=== PATIENT | male | born 1955 | race Caucasian/White ===

== ENCOUNTER 2016-08-23 09:20 | Outpatient (CLI) | payer OTHER | END 2016-08-23 09:21 | disposition home or self-care (01) | DX: R53.83 Other fatigue (principal); J45.909 Unspecified asthma, uncomplicated; I07.1 Rheumatic tricuspid insufficiency ==

== ENCOUNTER 2016-08-26 | Outpatient (CLI) | payer OTHER | END 2016-08-26 13:37 | disposition home or self-care (01) | DX: J45.909 Unspecified asthma, uncomplicated (principal) ==

== ENCOUNTER 2017-01-19 15:30 | Outpatient (CLI) | payer OTHER | END 2017-01-19 15:31 | disposition home or self-care (01) | LOC: SC 15:30 | PROVIDERS: ATTEND Nurse Practitioner Family | DX: G47.33 Obstructive sleep apnea (adult) (pediatric) (principal) | CPT/HCPCS: 99212; 99215 ==

== ENCOUNTER 2017-02-17 18:03 | Emergency (ER) | payer OTHER ==
--- NOTE | 2017-02-17 19:15 | ED Physician Documentation ---
PD HPI HEADACHE - Stated complaint Stated Complaint: HEADACHE - Chief complaint Chief Complaint: Neuro - History obtained from History obtained from: Patient - History of Present Illness Timing - onset: Other (For the last 3-4 days this gentleman who really has not had much in the way of headaches in the past has had thunderclap left retro- orbital headaches that start usually when he is on the toilet to have a bowel movement. The last 45 minutes to an hour at a time and then resolve with head pressure. While he has them he is very slightly nauseous but not light sensitive.) Review of Systems Ten Systems: 10 systems reviewed and negative Constitutional: denies: Fever, Chills Eyes: denies: Loss of vision, Decreased vision, Photophobia Cardiac: denies: Chest pain / pressure, Palpitations Respiratory: denies: Dyspnea, Cough PD PAST MEDICAL HISTORY - Past Medical History Past Medical History: Yes Respiratory: Asthma GI: GERD Other Past Medical History: sinus problems, melanoma - Past Surgical History Past Surgical History: Yes - Present Medications Home Medications: Ambulatory Orders Medication Instructions Recorded Confirmed Amox/Clav 875/125 [Augmentin] 1 each PO Q12H #28 tablet 02/17/17 Indomethacin [Indocin] 25 mg PO BID PRN #15 capsule 02/17/17 Sumatriptan 1 spray NS BID PRN #1 spray 02/17/17 - Allergies Allergies/Adverse Reactions: Allergies Allergy/AdvReac Type Severity Reaction Status Date / Time triamcinolone acetonide * Allergy Unknown Verified 02/17/17 19:43 [From [facility]] - Social History Does the pt smoke?: No Smoking Status: Never smoker Does the pt drink ETOH?: Yes Does the pt have substance abuse?: No - Immunizations Immunizations are current?: Yes - POLST Patient has POLST: No PD ED PE NORMAL - Vitals Vital signs reviewed: Yes - General General: Alert and oriented X 3, No acute distress - HEENT HEENT: PERRL, EOMI - Neck Neck: Supple, no meningeal sign, No bony TTP - Cardiac Cardiac: RRR, No murmur - Respiratory Respiratory: No respiratory distress, Clear bilaterally - Abdomen Abdomen: Normal bowel sounds, Soft, Non tender - Derm Derm: Normal color, Warm and dry - Extremities Extremities: No edema, No calf tenderness / cord - Neuro Neuro: Alert and oriented X 3, foot piece assembler 2-12 intact, No motor deficit, No sensory deficit, Normal speech - Psych Psych: Normal mood, Normal affect Results - Vitals Vitals: Vital Signs - 24 hr 02/17/17 02/17/17 02/17/17 18:20 20:40 22:02 Temperature 36.0 C L Heart Rate 67 61 56 L Respiratory 18 18 18 Rate Blood Pressure 155/92 H 147/83 H 138/89 H O2 Saturation 99 96 95 Oxygen O2 Source Room air - Labs Labs: Laboratory Tests 02/17/17 02/17/17 19:35 19:35 WBC 6.4 RBC 4.76 Hgb 14.8 Hct 43.4 MCV 91.1 MCH 31.0 MCHC 34.1 RDW 12.7 Plt Count 242 MPV 7.6 Neut # 3.1 Lymph # 2.7 [place] # 0.4 Eos # 0.2 Baso # 0.0 Absolute Nucleated RBC 0.00 Nucleated RBCs 0.0 Sodium 139 Potassium 3.9 Chloride 104 Carbon Dioxide 28 Anion Gap 7.0 BUN 12 Creatinine 1.0 Estimated GFR (MDRD) 76 L Glucose 127 H Calcium 9.6 - Rads (name of study) CT Angio Head Radiology: EMP read contemporaneously PD MEDICAL DECISION MAKING - ED course ED course: 61-year-old gentleman with episodic thunderclap headaches, CT angiography was performed, I discussed it with the radiologist, bolus timing was not perfect, but he felt there was probably no obvious aneurysm, there was left ethmoid sinusitis which may be causative. Follow-up for MRI and MRA encouraged. Departure - Departure Disposition: 01 Home, Self Care Clinical Impression: Sinusitis, acute Qualifiers: Sinusitis location: ethmoidal Recurrence: non-recurrent Qualified Code(s): J01.20 - Acute ethmoidal sinusitis, unspecified Headache Qualifiers: Headache type: unspecified Headache chronicity pattern: acute headache Intractability: not intractable Qualified Code(s): R51 - Headache Condition: Good Record reviewed to determine appropriate education?: Yes Instructions: ED Cephalgia Unspecified, ED Sinusitis Abx Tx Prescriptions: Amox/Clav 875/125 [Augmentin] 1 each PO Q12H #28 tablet Indomethacin [Indocin] 25 mg PO BID PRN #15 capsule PRN Reason: Headache Sumatriptan 1 spray NS BID PRN #1 spray PRN Reason: Headache Comments: Follow-up with Dr. Dan, next available appointment. Discuss MRI/MRA of your brain and the efficacy of the medications I am giving you. Return immediately if worse, fevers, or new symptoms. Your blood pressure was elevated today on check into the emergency department. This does not mean that you have hypertension, it is a common phenomenon to come to the emergency department and have elevated blood pressure. I recommend that she see her primary care physician within the week to have it rechecked when you are feeling better.
[2017-02-17 20:04] LABS: BASOPHILS % (AUTO) 0.7 %; EOSINOPHILS # (AUTO) 0.2 10^3/uL (0.0-0.7); EOSINOPHILS % (AUTO) 2.6 %; HCT - HEMATOCRIT 43.4 % (42.0-52.0); HGB - HEMOGLOBIN 14.8 g/dL (14.0-18.0); LYMPHOCYTES # (AUTO) 2.7 10^3/uL (1.5-3.5); LYMPHOCYTES % (AUTO) 42.2 %; MEAN CORPUSCULAR HGB CONC 34.1 g/dL (32.0-36.0); MEAN CORPUSCULAR VOLUME 91.1 fL (80.0-94.0); MEAN PLATELET VOLUME 7.6 fL (7.4-11.4); MONOCYTES # (AUTO) 0.4 10^3/uL (0.0-1.0); MONOCYTES % (AUTO) 6.3 %; NEUTROPHILS # (AUTO) 3.1 10^3/uL (1.5-6.6); NEUTROPHILS % (AUTO) 48.2 %; RED BLOOD COUNT 4.76 10^6/uL (4.70-6.10); RED CELL DISTRIBUTION WIDTH 12.7 % (12.0-15.0); UNCORRECTED WHITE BLOOD COUNT 6.4 x10^3/uL; WHITE BLOOD COUNT 6.4 x10^3/uL (4.8-10.8)
[2017-02-17 20:14] LABS: CALCIUM 9.6 mg/dL (8.5-10.3); POTASSIUM 3.9 mmol/L (3.5-5.0)
[2017-02-17] MEDS ORDERED: IOPAMIDOL-300 100 ML VIAL IVP ONE (21:17)
[2017-02-17 22:03] VITALS: BP 138/89
--- NOTE | 2017-02-17 22:05 | CT Report ---
EXAM: CT ANGIOGRAM HEAD EXAM DATE: 02/17/2017 09:04 PM. CLINICAL HISTORY: Intermittent Left thunderclap headaches. COMPARISON: None. TECHNIQUE: Routine helical CTA imaging was performed through the head. IV Contrast: 100 cc [id number] . Reconstructions: Routine multiplanar 3D MIP reconstructions. NASCET Criteria are used for stenosis measurements. In accordance with CT protocol optimization, one or more of the following dose reduction techniques w ere utilized for this exam: automated exposure control, adjustment of mA and/or KV based on patient s ize, or use of iterative reconstructive technique. FINDINGS: NON-CONTRAST HEAD: Parenchyma: No evidence of acute infarct, hemorrhage, or mass lesion. Brain parenchyma demonstrates n ormal appearance. Ventricles and Extra-axial Spaces: Normal. No extra-axial fluid collections or hemorrhage. Orbits and Sinuses: Orbits are normal. There is total opacification of the frontal sinus and nellie re mucosal thickening of the anterior left ethmoid air cells. Mastoid air cells and middle ear caviti es appear clear. Extracranial Soft Tissues and Bones: Extracranial soft tissues are unremarkable. No fractures. CT ANGIOGRAM HEAD: There appears to be poor contrast bolus timing with poor contrast opacification of the intracranial v asculature that technically limits evaluation. RIGHT: Intracranial ICA: The visualized intracranial ICA demonstrates no definitive aneurysm or stenosis Vertebral Artery: The visualized artery demonstrates no definitive aneurysm or stenosis. Anterior Cerebral Artery: The visualized artery demonstrates no definitive aneurysm or stenosis. Middle Cerebral Artery: The visualized artery demonstrates no definitive aneurysm or stenosis. Posterior Cerebral Artery: The visualized artery demonstrates no definitive aneurysm or stenosis. Posterior Communicating Artery: Not definitively seen. LEFT: Intracranial ICA: The visualized intracranial ICA demonstrates no definitive aneurysm or stenosis Vertebral Artery: The visualized artery demonstrates no definitive aneurysm or stenosis. Anterior Cerebral Artery: The visualized artery demonstrates no definitive aneurysm or stenosis. Middle Cerebral Artery: The visualized artery demonstrates no definitive aneurysm or stenosis. Posterior Cerebral Artery: The visualized artery demonstrates no definitive aneurysm or stenosis. Posterior Communicating Artery: Not definitively seen. CENTRAL: Anterior Communicating Artery: Patent. No aneurysm. Basilar Artery: The visualized artery demonstrates no definitive aneurysm or stenosis. DURAL VENOUS SINUSES AND MAJOR CENTRAL VEINS: Patent. POST-CONTRAST HEAD: No abnormal enhancement. IMPRESSION: CT HEAD 1. No definitive acute infarct, hemorrhage, mass, hydrocephalus, or abnormal postcontrast enhancement . 2. There is total opacification of the frontal sinus with severe mucosal thickening of the anterior l eft ethmoid air cells. Finding may represent acute sinusitis in the appropriate clinical setting. CTA HEAD 1. On angiographic imaging there is poor contrast opacification of the intracranial arterial vessels which may be due to poor contrast bolus timing. This technically limits evaluation of the intracrania l vasculature. 2. The visualized intracranial vasculature does not demonstrate definitive stenosis or aneurysm, thou gh these are not excluded on the current study. Consider repeat examination or MRA. CHA The above findings were discussed with Garry Claire by Dr. Vikram Curtis at 22:01 hrs on 02/17/17. Referring Provider Line: [phone] SITE ID: [id number]
[2017-02-17] MEDS ORDERED: AMOX/CLAV 875 MG/125 MG TABLET PO STA (22:08)
[2017-02-17] MEDS ORDERED: KETOROLAC 30 MG/ML VIAL IVP STA (22:08)
[2017-02-17] MEDS ORDERED: KETOROLAC 30 MG/ML VIAL ONE (22:11)
[2017-02-17] MEDS ORDERED: AMOX/CLAV 875 MG/125 MG TABLET PO ONE (22:11)
== END 2017-02-17 22:30 | disposition home or self-care (01) ==
LOC: ED 18:03
DX: J01.20 Acute ethmoidal sinusitis, unspecified (principal); R51 Headache; R03.0 Elevated blood-pressure reading, without diagnosis of hypertension; R11.0 Nausea
CPT/HCPCS: 36415; 70496; 80048; 85025; 96374; 99283; 99284; A9270; Q9967

== ENCOUNTER 2018-02-16 14:54 | Outpatient (CLI) | payer OTHER | END 2018-02-16 14:55 | disposition home or self-care (01) | LOC: SC 14:54 | PROVIDERS: ATTEND Nurse Practitioner Family | DX: G47.33 Obstructive sleep apnea (adult) (pediatric) (principal) | CPT/HCPCS: 99212; 99213 ==

== ENCOUNTER 2019-04-10 15:42 | Outpatient (CLI) | payer OTHER ==
--- NOTE | 2019-04-10 17:29 | SLEEP CARE CONSULTATION ---
Information from patient questionnaire entered by Maritza Tesfaye. I have reviewed and concur with the information entered by Maritza Tesfaye. This document represents the service I personally performed and the decisions made by me, Marilyn Ulloa, RN, MSN, PASTORAL WORKER. History of Present Illness Previous diagnosis: Moderate, Obstructive Sleep Apnea-Hypopnea Syndrome AHI: 21.7 Reason for CPAP/BiPAP follow up: annual Accompanied by: Spouse Equipment type: CPAP Equipment obtained from: [facility] Mask style: Nasal pillows (Mirza Fx nasal pillows) Mask brand: Resmed Backup mask available: Yes Last cushion change: today Prior sleep studies: Yes Year and Where: 2008 [facility] CPAP Compliance Data - Data Reviewed with Patient Average duration of nightly device use: 8H 29M Compliance rate %: 99.4 Current pressure setting (cmH2O): 12-20 Humidity settin Heated hose settin Subjective Patient concerns: reports: nasal congestion (morning cough for years that is resolved within 30 minutes or less. ), other (the cat turns on the CPAP intermittently as noted on compliance. ). denies: aerophagia, mask discomfort, air blowing in eyes, mask leak noise, condensation in mask/hose, dry mouth, nose, throat, epistaxis Observed to snore while using device: Yes (when supine) Current pressure setting perceived as: comfortable On therapy, patient: reports: sleeping better, more rested overall. denies: drowsiness while driving Initial [place] Sleepiness Scale score: 6 Current [place] Sleepiness Scale score: 5 Allergies and Home Medications Known drug allergies: No Allergy and home medication list: Medication Name (generic/name brand) Strength & Dosage Advair Diskus 2 puffs daily Protonix 20mg tab one daily celexa 20mg daily Review of Systems Review of systems same as previous: Yes Physical Exam Heart Rate: 56 O2 Saturation: 97 Height: 5 ft 10.6 in Weight (kg): 285 lb Weight change since last visit: 19 pounds weight gain Body Mass Index: 40.1 BMI Classification: Class 3 Impression and Plan 1. Obstructive Sleep Apnea-Hypopnea Syndrome, moderate, with good treatment compliance and good apnea control. On CPAP therapy, the patient has better sleep quality and is more rested overall. For morning cough and nasal congestion, he is advised to try using CPAP with humidity off but water in reservoir as a passover. This to see if humidity level is cause of cough. He is to adjust as needed for comfort. I showed him how to adjust setting on a sample CPAP. His increase in fatigue he feels is due to new antidepressant though likes benefit as he is less irritable. However, he has noted increased ability to doze when sedentary. Thus since he is snoring when supine, I will increase CPAP pressure range to [id number]. He is to contact me if pressure change is uncomfortable. His questions were answered about travel CPAP. Since his apnea is more severe supine as shown on his polysomnography, he is advised to avoid sleeping supine if unable to use CPAP. I also discussed effect of his recent weight gain to his apnea risk and pressure requirements. Thus he is advised to lose weight and agreed with plan. Patient's apnea severity and rationale for treatment to reduce apnea, improve sleep quality and reduce cardiovascular and cerebrovascular events was reviewed. I also reviewed the benefit of consistent device use of CPAP for depression( stress) . * Change CPAP pressure to 13-20 cmH2O * Adjust humidity * Avoid supine sleep if unable to use CPAP. * Notify me if snoring with mask or feeling that the pressure is too much or too little * Attempt to lose weight * Return for follow up in 1 year , or sooner if concerns arise I spent 100% of this 30 minute visit face to face with the patient with greater than 50% of this was spent time counseling the patient and coordination of care.
== END 2019-04-10 15:43 | disposition home or self-care (01) ==
LOC: SC 15:42
PROVIDERS: ATTEND Nurse Practitioner Family
DX: G47.33 Obstructive sleep apnea (adult) (pediatric) (principal)
CPT/HCPCS: 99212; 99214

== ENCOUNTER 2019-09-14 10:36 | Outpatient (CLI) | payer MEDICARE, OTHER ==
[2019-09-14 11:45] VITALS: BP 120/80
--- NOTE | 2019-09-14 11:45 | SLEEP CARE CONSULTATION ---
Information from patient questionnaire entered by Keila Chew. I have reviewed and concur with the information entered by Keila Chew. This document represents the service I personally performed and the decisions made by me, Marilyn Ulloa, RN, MSN, MANAGER [employer]ING. History of Present Illness Previous diagnosis: Moderate, Obstructive Sleep Apnea-Hypopnea Syndrome AHI: 21.7 Reason for follow up: other (Medicare compliance visit) Equipment type: CPAP Equipment obtained from: [facility] Mask style: Nasal pillows CPAP Compliance Data - Data Reviewed with Patient Average duration of nightly device use: 8.7 (8.75 last 30) Compliance rate %: 100 (06/02/19-07/01/19)(100 for last 30 days) Current pressure setting (cmH2O): 13-20 Humidity settin Heated hose settin Average residual AHI: 2.4 (2.3 last 30 days) Average large leak: 21 min 28 sec (1 min last 30 days) Subjective Missed days of use due to: reports: other (increased sleep after ER visit ) Patient concerns: denies: aerophagia, mask discomfort, air blowing in eyes, mask leak noise, condensation in mask/hose, nasal congestion, dry mouth, nose, thr oat, epistaxis Observed to snore while using device: No Current pressure setting perceived as: comfortable On therapy, patient: reports: sleeping better, awakening more refreshed, being more awake and alert during the day, more rested overall. denies: drowsiness while driving Initial [place] Sleepiness Scale score: 6 Current [place] Sleepiness Scale score: 2 Allergies and Home Medications Known drug allergies: Yes Home medication list reviewed: Yes (no changes except prednisone taper ) Review of Systems Review of systems same as previous: No (ER for left frontal/orbital severe headache / Sinus surgery planned) Physical Exam Blood Pressure: 120/80 Cuff size: long Heart Rate: 70 O2 Saturation: 98 Height: 5 ft 10.6 in Weight: 280 lb 9.6 oz Weight change since last visit: lost 4.4 pounds Body Mass Index: 39.5 BMI Classification: Obese Impression and Plan 1. Obstructive Sleep Apnea-Hypopnea Syndrome,moderate , with good treatment compliance and good apnea control. On CPAP therapy, the patient has better sleep quality and is more rested overall. His compliance showed good compliance after Medicare insurance first 30 days in June and since. For upcoming sinus surgery, he is to bring his CPAP. He is also to discuss if can use CPAP. If he does, perhaps a full face mask could be used until he heals. Thus I fitted him with an Dreamwear full face mask - medium. He is to use prior to surgery so used to it to assist transition post operatively. It was emphasized that his pain medication will increase apnea risk so needs to use CPAP with all sleep. His current autoCPAP range should accommodate for higher AHI. Currently on CPAP pressure of [id number] with 90% average pressure of 14.1cmH20.Patient has started to lose weight as advised at last visit. Currently patients BMI is 39.9 obesity class. Morbid obesity is BMI of 40. Obesity increases the risk of apnea, CPAP pressure requirements and overall health risks especially cardiovascular and diabetes. Thus patient is advised to continue to lose weight. Weight loss can be done with reducing portion size, reducing refined foods and balancing content with vegetables, fruit and protein. In addition tracking food intake will allow awareness of how to modify diet to achieve weight loss goals. Also eating more slowly will allow more awareness of food intake and enjoyment of food while assisting patient to modify intake at each meal. A diet consultation can be helpful in achieving optimal weight loss goals. The BMI chart was reviewed. The patient would like to reduce to 20 pounds bringing their BMI down to about 36. Patient encouraged to discuss their weight loss goals with their PCP and consider a referral to a knitter helper. He has tried in past and not successful. He is advised to track food for a week to figure where he needs to modify. In addition, eat slowly with rationale discussed. Then he is advised to strive for small weight loss goals suchs as 10 pounds to get to a more healthy weight. The ultimate goal for him where felt well was 180 weight and would bring his BMI down to 25 as shown on the BMI chart . He could also think of a program that he and spouse could do together such as weight watchers and discuss with PCP. The patient's CPAP pressure range should accommodate some weight loss. Symptoms to report for additional pressure adjustment discussed. Patient's apnea severity and rationale for treatment to reduce apnea, improve sleep quality and reduce cardiovascular and cerebrovascular events was reviewed. I also reviewed the benefit of consistent device use of CPAP for gerd. * Continue CPAP pressure at 13-20 cmH2O * Try Full Face mask in prep for post op use * Notify me if snoring with mask or feeling that the pressure is too much or too little * Continue to lose weight * Call this office if any problems using CPAP * Return for follow up in 1 year , or sooner if concerns arise Time Spent with Patient (minutes): 33 I spent 100% of this visit face to face with the patient with greater than 50% of this was spent time counseling the patient and coordination of care.
== END 2019-09-14 10:37 | disposition home or self-care (01) ==
LOC: SC 10:36
PROVIDERS: ATTEND Nurse Practitioner Family
DX: G47.33 Obstructive sleep apnea (adult) (pediatric) (principal); E66.9 Obesity, unspecified; Z68.39 Body mass index [BMI] 39.0-39.9, adult
CPT/HCPCS: 99214; G0463; 99212

== ENCOUNTER 2020-04-21 14:02 | Outpatient (CLI) | payer MEDICARE, OTHER | END 2020-04-21 14:03 | disposition critical access hospital (66) | LOC: EMS 14:02 | PROVIDERS: ATTEND Surgery | DX: S49.91XA Unspecified injury of right shoulder and upper arm, initial encounter (principal); W01.198A Fall on same level from slipping, tripping and stumbling with subsequent striking against other object, initial encounter; Y93.H9 Activity, other involving exterior property and land maintenance, building and construction; Y92.008 Other place in unspecified non-institutional (private) residence as the place of occurrence of the external cause | CPT/HCPCS: A0425; A0429 ==

== ENCOUNTER 2020-04-21 14:35 | Emergency (ER) | payer MEDICARE, OTHER ==
--- NOTE | 2020-04-21 14:41 | ED Physician Documentation ---
PD HPI UPPER EXT INJURY - Stated complaint Stated Complaint: FALL/SHOULDER PAIN - History obtained from History obtained from: Patient - History of Present Illness Location: Right, Shoulder Type of injury: Fall (he fell few feet and struck right shoulder on corner edging of deck. Pain at right shoulder and painful for movement. 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 No: Weakness, Numbness Similar symptoms before: Has not had sx before Review of Systems Constitutional: denies: Fever Nose: denies: Rhinorrhea / runny nose, Congestion Throat: denies: Sore throat Cardiac: denies: Chest pain / pressure Respiratory: denies: Cough GI: denies: Abdominal Pain Skin: denies: Abrasion (s), Laceration (s) Neurologic: denies: Headache, Head injury PD PAST MEDICAL HISTORY - Past Medical History Respiratory: Asthma GI: GERD - Past Surgical History Past Surgical History: Yes - Present Medications Home Medications: Ambulatory Orders Medication Instructions Recorded Confirmed Amox/Clav 875/125 [Augmentin] 1 each PO Q12H #28 tablet 02/17/17 Indomethacin [Indocin] 25 mg PO BID PRN #15 capsule 02/17/17 SUMAtriptan [Sumatriptan] 1 spray NS BID PRN #1 spray 02/17/17 Hydrocodone/Acetaminophen 1 each PO Q6H PRN #15 tablet 04/21/20 [Hydrocodone-Acetamin 5-325 mg] Naproxen 500 mg PO TID #20 tablet 04/21/20 methocarbamoL [Robaxin] 500 mg PO Q6H PRN #20 tablet 04/21/20 - Allergies Allergies/Adverse Reactions: Allergies Allergy/AdvReac Type Severity Reaction Status Date / Time triamcinolone acetonide * Allergy Unknown Verified 04/21/20 14:41 [From [facility]] - Social History Does the pt smoke?: No Smoking Status: Never smoker Does the pt drink ETOH?: Yes Does the pt have substance abuse?: No - Immunizations Immunizations are current?: Yes - POLST Patient has POLST: No PD ED PE NORMAL - Vitals Vital signs reviewed: Yes - General General: Alert and oriented X 3, No acute distress, Well developed/nourished - HEENT HEENT: Atraumatic - Neck Neck: Supple, no meningeal sign - Cardiac Cardiac: RRR, No murmur - Respiratory Respiratory: Clear bilaterally, Other (no chestwall tenderness) - Derm Derm: Normal color, Warm and dry - Extremities Extremities: Other (right shoulder with tenderness mostly proximal humeral area. Some tender posterior shoulder. Swelling/effusion of the shoulder. No gross deformity. Limited ROM due to the pain of it. ) - Neuro Neuro: No motor deficit, No sensory deficit, Other (no edema in forearm/hand.) Results - Vitals Vitals: Vital Signs - 24 hr 04/21/20 04/21/20 14:36 16:29 Temperature 37 C Heart Rate 62 65 Respiratory 16 16 Rate Blood Pressure 149/82 H 183/92 H O2 Saturation 98 95 Oxygen O2 Source Room air - Rads (name of study) right shoulder Radiology: Prelim report reviewed (no fractures nor dislocations. ), See rad report PD MEDICAL DECISION MAKING - ED course Complexity details: reviewed results, considered differential, d/w patient Departure - Departure Disposition: 01 Home, Self Care Clinical Impression: Accidental fall Qualifiers: Encounter type: initial encounter Qualified Code(s): W19.XXXA - Unspecified fall, initial encounter Shoulder injury Qualifiers: Encounter type: initial encounter Laterality: right Qualified Code(s): S49.91XA - Unspecified injury of right shoulder and upper arm, initial encounter Condition: Stable Record reviewed to determine appropriate education?: Yes Instructions: ED Sprain Shoulder Follow-Up: Delvis Cohen MD [Provider Admit Priv/Credential] - CLAUDIA SANDOVAL DO [Primary Care Provider] - Prescriptions: Hydrocodone/Acetaminophen [Hydrocodone-Acetamin 5-325 mg] 1 each PO Q6H PRN #15 tablet PRN Reason: Pain Naproxen 500 mg PO TID #20 tablet methocarbamoL [Robaxin] 500 mg PO Q6H PRN #20 tablet PRN Reason: Spasms Comments: X-rays are seen on your x-ray according to the radiology report. Presume there is soft tissue injury of injury of the ligaments or could even be the rotator cuff muscles given the amount of pain that you have and swelling in the area. Use the sling for decreased range of motion and comfort for the next 1 to 2 weeks. Follow-up with orthopedics or your primary care for evaluation of the shoulder later this week or early next week to better assess it once the swelling is down. Anti-inflammatories naproxen 2-3 times a day with food. To that add Tylenol or hydrocodone as needed for pain. Limited use of the right arm for the next couple of weeks likely. Forms: Activity restrictions Discharge Date/Time: 04/21/20 16:00
[2020-04-21] MEDS ORDERED: HYDROmorphone 2 MG/ML VIAL IM STA (14:42)
[2020-04-21] MEDS ORDERED: KETOROLAC 30 MG/ML VIAL IM STA (14:42)
--- NOTE | 2020-04-21 15:20 | XRAY Report ---
PROCEDURE: Shoulder 3 View RT INDICATIONS: fall to right shoulder TECHNIQUE: 3 views of the shoulder were acquired. COMPARISON: None. FINDINGS: Bones: No fractures or dislocations. No suspicious bony lesions. Visualized ribs appear intact. De generative changes are seen, including moderate subacromial spurring. Soft tissues: No suspicious soft tissue calcifications. The visualized lung demonstrates a normal a ppearance. IMPRESSION: No acute posttraumatic abnormality is seen. If there is focal tenderness (or other strong clinical concern for a fracture that is not seen on thi s plain film study) then please consider a dedicated CT for further evaluation. Reviewed by: Tyrone Love MD on 04/21/2020 2:19 PM [facility] Approved by: Tyrone Love MD on 04/21/2020 2:19 PM [facility] Station ID: [id number]
[2020-04-21] MEDS ORDERED: HYDROcod/ACETAM 5/325 MG TABLET PO STA (15:34)
[2020-04-21 16:29] VITALS: BP 183/92
== END 2020-04-21 16:00 | disposition home or self-care (01) ==
LOC: EDUNIT# → ED 14:35
DX: S49.91XA Unspecified injury of right shoulder and upper arm, initial encounter (principal); W01.198A Fall on same level from slipping, tripping and stumbling with subsequent striking against other object, initial encounter
CPT/HCPCS: 73030; 96372; 99283; 99284; A9270; J1170

== ENCOUNTER 2020-09-16 14:47 | Outpatient (CLI) | payer MEDICARE, OTHER ==
--- NOTE | 2020-09-16 15:17 | SLEEP CARE CONSULTATION ---
Information from patient questionnaire entered by Keila Chew. I have reviewed and concur with the information entered by Keila Chew. This document represents the service I personally performed and the decisions made by me, Sina Grissom MD, [facility]. History of Present Illness Service Date and Time: 09/16/2020 1447 Previous diagnosis: Moderate, Obstructive Sleep Apnea-Hypopnea Syndrome AHI: 21.7 (in 2008) Reason for follow up: annual (last seen 09/2019) Equipment type: CPAP Equipment obtained from: [employer] Mask style: Nasal pillows Prior sleep studies: Yes Year and Where: 2008 - [facility] Sleep Type of Sleep Study: Polysomnography HPI additional information: HPI: Mr. Horne was diagnosed to have moderate obstructive sleep apnea- hypopnea syndrome and returns today for follow up of CPAP therapy. The patient purchased the device from [employer] but is getting supplies from [employer] He wears nasal pillows. He continues to use the device nightly and all through the night. The compliance report shows that he uses the device 359 nights out of the past 360 nights, averaging 8.6 hours a night. He complains of no particular problem with the device such as soreness on the face, dry nose, epistaxis, nasal congestion or headache. He thinks that the pressure of 13 - 20 cmH2O is comfortable. On the CPAP therapy he notices improvement in his sleep quality, and that he wakes up feeling fresher in the morning and more awake/alert during the day. His notices no snore at all. [place] Sleepiness Scale score is 4. The average residual AHI is 3.2; and average time in large leak per day is 36 seconds. The 90th percentile pressure is 15.2 cmH2O. CPAP Compliance Data - Data Reviewed with Patient Average duration of nightly device use: 8 hr 48 min Compliance rate %: 99.4 (180 days) Current pressure setting (cmH2O): 13-20 Humidity settin Heated hose settin Average residual AHI: 3.4 Average large leak: 29 sec Subjective Initial [place] Sleepiness Scale score: 6 (in 2008) Allergies and Home Medications Drug allergies reviewed: Yes Home medication list reviewed: Yes (sertraline replaces Celexa) Review of Systems Review of systems same as previous: Yes Physical Exam Height: 5 ft 11 in Weight: 280 lb Body Mass Index: 39.0 BMI Classification: Obese Impression and Plan IMPRESSION: 1. Obstructive Sleep Apnea-Hypopnea Syndrome, moderate, with the patient continuing to do well on nasal CPAP therapy. He has excellent compliance and significant clinical benefits. The current pressure appears effective and comfortable. Overall, he is very satisfied with treatment and plans to continue with it long-term. No adjustment is necessary today. PLAN: 1. Continue with autoCPAP set at 13 - 20 cm H2O. 2. Try to lose weight 3. Try ResMed N30i mask and P30i nasal pillows. 4. Return in one year for follow up or earlier if there is any problem with the treatment. He will be eligible for a new machine then. Visit Type: In Office Time Spent with Patient (minutes): 15 Provider Statement: I spent 100% of the Face to Face Visit with the patient with greater than 50% spent counseling the patient and coordination of care.
== END 2020-09-16 14:48 | disposition home or self-care (01) ==
LOC: SC 14:47
PROVIDERS: ATTEND Internal Medicine Pulmonary Disease
DX: G47.33 Obstructive sleep apnea (adult) (pediatric) (principal); E66.9 Obesity, unspecified; Z68.39 Body mass index [BMI] 39.0-39.9, adult
CPT/HCPCS: 99212; G0463

== ENCOUNTER 2021-06-02 13:10 | Outpatient (CLI) | payer MEDICARE, OTHER ==
--- NOTE | 2021-06-02 20:15 | SLEEP CARE CONSULTATION ---
Information from patient questionnaire entered by Maritza Tesfaye. I have reviewed and concur with the information entered by Maritza Tesfaye. This document represents the service I personally performed and the decisions made by me, Sina Grissom MD, [facility]. History of Present Illness Service Date and Time: 06/02/2021 1310 Previous diagnosis: Moderate, Obstructive Sleep Apnea-Hypopnea Syndrome AHI: 21.7 (in 2008) Reason for follow up: other (9 month, needs new machine) Equipment type: ASV Equipment obtained from: [employer] Mask style: Nasal pillows Prior sleep studies: Yes Year and Where: 2008 - [facility] Sleep Type of Sleep Study: Polysomnography HPI additional information: Mr. Horne was diagnosed to have moderate obstructive sleep apnea-hypopnea syndrome and returns today for follow up of CPAP therapy. The patient purchased the device from [employer] and was fitted with ResMed P30 nasal pillows. He uses the device nightly and all through the night. The compliance report shows that he uses the device 179 nights out of the past 180 nights, averaging 9 hours a night. The > 4 hour compliance rate for the past 30 days is 99%. He complains of no particular problem with the device such as soreness on the face, dry nose, epistaxis, nasal congestion or headache. He thinks that the pressure of 12 - 20 cmH2O is comfortable. On the CPAP therapy he notices improvement in his sleep quality, and that he wakes up feeling fresher in the morning and more awake/alert during the day. His notices no snore at all. [place] Sleepiness Scale score is 4 The average residual AHI is 2,1 ; and average time in large leak per day is 56 seconds a night. The 90th percentile pressure is 15.1 cmH2O. Sleep Study - Results Type of Sleep Study: Polysomnography Prior sleep studies: Yes Year and Where: 2008 - [facility] Sleep CPAP Compliance Data - Data Reviewed with Patient Average duration of nightly device use: 9 hours Compliance rate %: 99.4 Current pressure setting (cmH2O): 13-20 Humidity settin Heated hose settin Average residual AHI: 2.1 Average large leak: 56 seconds Subjective Patient concerns: reports: other (needs new machine) Current pressure setting perceived as: comfortable Initial [place] Sleepiness Scale score: 6 (in 2009) Current [place] Sleepiness Scale score: 4 Allergies and Home Medications Drug allergies reviewed: Yes Home medication list reviewed: Yes Review of Systems Review of systems same as previous: Yes Physical Exam Height: 5 ft 11 in Weight: 264 lb Body Mass Index: 36.8 BMI Classification: Obese Impression and Plan IMPRESSION: 1. Obstructive Sleep Apnea-Hypopnea Syndrome, moderate, with the patient continuing to do well on nasal CPAP therapy. He has excellent compliance and significant clinical benefits. The current pressure appears effective and comfortable. Overall, he is very satisfied with treatment and plans to continue with it long-term. Because the CPAP is now older than the useful life of 5 years and it is also being recalled, I will order the patient a new one and make it an autoCPAP set between 13 and 20 cmH2O. PLAN: 1. Prescription made for an autoCPAP, heated humidifier, and related supplies. 2. Try ResMed N30i mask 3. Try to lose more weight 4. Return for follow up after one month of using the CPAP. Counseling Topics: Weight control Visit Type: In Office Time Spent with Patient (minutes): 15 Provider Statement: I spent 100% of the Face to Face Visit with the patient with greater than 50% spent counseling the patient and coordination of care.
== END 2021-06-02 13:11 | disposition home or self-care (01) ==
LOC: SC 13:10
PROVIDERS: ATTEND Internal Medicine Pulmonary Disease
DX: G47.33 Obstructive sleep apnea (adult) (pediatric) (principal); E66.9 Obesity, unspecified; Z68.36 Body mass index [BMI] 36.0-36.9, adult
CPT/HCPCS: 99212; G0463

== ENCOUNTER 2021-09-08 14:10 | Outpatient (CLI) | payer MEDICARE, OTHER ==
[2021-09-08 20:07] VITALS: BP 126/71
--- NOTE | 2021-09-08 20:07 | SLEEP CARE CONSULTATION ---
Information from patient questionnaire entered by Eve Traore MA. I have reviewed and concur with the information entered by Eve Traore MA. This document represents the service I personally performed and the decisions made by me, Sina Grissom MD, [facility]. History of Present Illness Service Date and Time: 09/08/2021 1410 Previous diagnosis: Moderate, Obstructive Sleep Apnea-Hypopnea Syndrome AHI: 21.7 (in 2008) Reason for follow up: first compliance (07/25 SET UP DATE, RESMED, ) Equipment type: ASV Equipment obtained from: [employer] Mask style: Nasal pillows Prior sleep studies: Yes Year and Where: 2008 - [facility] Sleep Type of Sleep Study: Polysomnography HPI additional information: Mr. Horne was diagnosed to have moderate obstructive sleep apnea-hypopnea syndrome (AHI was 21.7 based on an in-laboratory polysomnography performed in 2008) and returns today for follow up of CPAP therapy. The patient recently acquired a new ResMed AirSense 11 from [facility] and was fitted with ResMed P30 nasal pillows. He uses the device nightly and all through the night. The compliance report shows that he uses the device 30 nights out of the past 30 nights, averaging 8.6 hours a night. The > 4 hour compliance rate for the past 30 days is 97%. He complains of no particular problem with the device such as soreness on the face, dry nose, epistaxis, nasal congestion or headache. He thinks that the pressure of 13 - 20 cmH2O is too low. On the CPAP therapy he notices improvement in his sleep quality, and that he wakes up feeling fresher in the morning and more awake/alert during the day. His notices no snore. The average residual AHI is 2.3; and average time in large leak per day is 0 seconds a night. The 90th percentile pressure is 14.0 cmH2O. Sleep Study - Results Type of Sleep Study: Polysomnography Prior sleep studies: Yes Year and Where: 2008 - [facility] Sleep CPAP Compliance Data - Data Reviewed with Patient Average duration of nightly device use: 8 hours 59 minutes Compliance rate %: 100 Current pressure setting (cmH2O): 13-20 Humidity settin Heated hose settin Average residual AHI: 1.9 Average large leak: 38 seconds Subjective Initial [place] Sleepiness Scale score: 6 (in 2008) Current [place] Sleepiness Scale score: 2 (2021) Allergies and Home Medications Drug allergies reviewed: Yes Home medication list reviewed: Yes Allergy and home medication list: Allergies triamcinolone acetonide * [From [facility]] Allergy (Verified 04/21/20 14:41) Unknown Review of Systems Review of systems same as previous: Yes Physical Exam Blood Pressure: 126/71 (LEFT) Cuff size: wrist Heart Rate: 63 O2 Saturation: 96 Height: 5 ft 11 in Weight: 268 lb Body Mass Index: 37.3 BMI Classification: Obese Impression and Plan IMPRESSION: 1. Obstructive Sleep Apnea-Hypopnea Syndrome, moderate, with the patient continuing to do well on nasal CPAP therapy. He has excellent compliance and significant clinical benefits. The current pressure appears effective but not completely comfortable. Overall, he is very satisfied with treatment and plans to continue with it long-term. PLAN: 1. Raise the pressure for his comfort to 15 - 20 cmH2O via the modem . 2. Continue to use his CPAP every night and all night. 3. Try to lose more weight 4. Return for follow up in a year or earlier if there is any problem. Counseling Topics: Weight control Follow up with Sleep Care in: 1 year Time Spent with Patient (minutes): 15
== END 2021-09-08 14:11 | disposition home or self-care (01) ==
LOC: SC 14:10
PROVIDERS: ATTEND Internal Medicine Pulmonary Disease
DX: G47.33 Obstructive sleep apnea (adult) (pediatric) (principal); E66.9 Obesity, unspecified; Z68.37 Body mass index [BMI] 37.0-37.9, adult
CPT/HCPCS: 99212; G0463

== ENCOUNTER 2021-09-22 11:03 | Outpatient (CLI) | payer MEDICARE, OTHER ==
[2021-09-22 13:01] VITALS: BP 130/72
--- NOTE | 2021-09-22 13:01 | SLEEP CARE CONSULTATION ---
Information from patient questionnaire entered by Eve Traore MA. I have reviewed and concur with the information entered by Eve Traore MA. This document represents the service I personally performed and the decisions made by me, Sina Grissom MD, [facility]. History of Present Illness Service Date and Time: 09/22/2021 1103 Previous diagnosis: Moderate, Obstructive Sleep Apnea-Hypopnea Syndrome AHI: 21.7 (in 2008) Reason for follow up: other (2 WEEK F/U, [facility]QU[facility], ) Equipment type: ASV [facility] style: Nasal pillows Prior sleep studies: Yes Year and Where: 2008 - [facility] Sleep Type of Sleep Study: Polysomnography HPI additional information: Mr. Horne was diagnosed to have moderate obstructive sleep apnea-hypopnea syndrome (AHI was 21.7 based on an in-laboratory polysomnography performed in 2008) and returns today for follow up of CPAP therapy. The patient recently acquired a new ResMed AirSense 11 from [facility] and was fitted with ResMed P30 nasal pillows. He continues to use the device nightly and all through the night. The compliance report shows that he uses the device 30 nights out of the past 30 nights, averaging 8.4 hours a night. The > 4-hour compliance rate for the past 30 days is 97%. He complains of no particular problem with the device such as soreness on the face, dry nose, epistaxis, nasal congestion or headache. He thinks that the pressure of 15 - 20 cmH2O is comfortable (raised from 13 20 cmH2O). On the CPAP therapy he notices improvement in his sleep quality, and that he wakes up feeling fresher in the morning and more awake/alert during the day. His now notices loud snore when his mouth is open. The average residual AHI is 2.2; and average time in large leak per day is 0 seconds a night. The 90th percentile pressure is 14.7 cmH2O. Sleep Study - Results Type of Sleep Study: Polysomnography Prior sleep studies: Yes Year and Where: 2008 - [facility] Sleep CPAP Compliance Data - Data Reviewed with Patient Average duration of nightly device use: 8 HOURS 40 MINUTES Compliance rate %: 100 Current pressure setting (cmH2O): 15-20 Average residual AHI: 2.1 Central apnea: 1.1 Obstructive apnea: .4 Average large leak: 18.5 Subjective Current pressure setting perceived as: too low (RAISED PRESSURE BUT FELLS TOO LOW STILL, WAKING UP CAUSE E IS SNORING.) Initial [place] Sleepiness Scale score: 6 (in 2008) Current [place] Sleepiness Scale score: 3 (2021) Allergies and Home Medications Known drug allergies: Yes Drug allergies reviewed: Yes Home medication list reviewed: Yes Allergy and home medication list: Allergies triamcinolone acetonide * [From [facility]] Allergy (Verified 04/21/20 14:41) Unknown Review of Systems Review of systems same as previous: Yes Physical Exam Vital signs obtained and entered by: Palmira TRAORE CMA AANACHO Blood Pressure: 130/72 (RIGHT, PULSE 66 , RESP 16,) Heart Rate: 71 O2 Saturation: 96 (WITH PAPER MASK) Height: 5 ft 11 in Weight: 264 lb Body Mass Index: 36.8 BMI Classification: Obese Impression and Plan IMPRESSION: 1. Obstructive Sleep Apnea-Hypopnea Syndrome, moderate, with the patient continuing to do well on nasal CPAP therapy. He has excellent compliance and significant clinical benefits. The current pressure appears effective but not completely comfortable. Overall, he is very satisfied with treatment and plans to continue with it long-term. Because he snores, I will raise the starting pressure a little. He should get a chinstrap to keep his mouth shut at night. He does not want to use a full face mask. PLAN: 1. Raise the pressure for his comfort to 16 - 20 cmH2O via the modem . 2. Continue to use his CPAP every night and all night. 3. Get a chinstrap from [facility]. He can also try using Poligrip denture adhesive strips to seal his lips shut. 4. Return for follow up in a year or earlier if there is any problem. Follow up with Sleep Care in: 1 year Follow up recommended for: Weight management Visit Type: In Office Time Spent with Patient (minutes): 15 Provider Statement: I spent 100% of the Face to Face Visit with the patient with greater than 50% spent counseling the patient and coordination of care.
== END 2021-09-22 11:04 | disposition home or self-care (01) ==
LOC: SC 11:03
PROVIDERS: ATTEND Internal Medicine Pulmonary Disease
DX: G47.33 Obstructive sleep apnea (adult) (pediatric) (principal); E66.9 Obesity, unspecified; Z68.36 Body mass index [BMI] 36.0-36.9, adult
CPT/HCPCS: 99212; G0463

== ENCOUNTER 2021-11-24 12:13 | Outpatient (CLI) | payer MEDICARE, OTHER ==
--- NOTE | 2021-11-24 14:30 | SLEEP CARE CONSULTATION ---
Information from patient questionnaire entered by Stalin Nunn. I have reviewed and concur with the information entered by Stalin Nunn. This document represents the service I personally performed and the decisions made by me, Sina Grissom MD, [facility]. History of Present Illness Service Date and Time: 11/24/2021 1213 Previous diagnosis: Moderate, Obstructive Sleep Apnea-Hypopnea Syndrome AHI: 21.7 (in 2008) Reason for follow up: other ([facility] FOR [facility], [facility]ESM[facility]) Equipment type: ASV Equipment obtained from: [employer] Mask style: Nasal pillows Prior sleep studies: Yes Year and Where: 2008 - [facility] Sleep Type of Sleep Study: Polysomnography HPI additional information: Mr. Horne was diagnosed to have moderate obstructive sleep apnea-hypopnea syndrome (AHI was 21.7 based on an in-laboratory polysomnography performed in 2008) and returns today for follow up of CPAP therapy. The patient recently acquired a new ResMed AirSense 11 from [employer] and was fitted with ResMed P30 nasal pillows. He continues to use the device nightly and all through the night. The compliance report shows that he uses the device 60 nights out of the past 60 nights, averaging 8.6 hours a night. The > 4-hour compliance rate for the past 60 days is 100%. He complains of no particular problem with the device such as soreness on the face, dry nose, epistaxis, nasal congestion or headache. He thinks that the pressure of 14 - 16 cmH2O is comfortable (raised from 13 20 cmH2O). On the CPAP therapy he notices improvement in his sleep quality, and that he wakes up feeling fresher in the morning and more awake/alert during the day. His now notices loud snore when his mouth is open. The average residual AHI is 1.3; and average air leak is 0.5 L/minute. The 90th percentile pressure is 15.5 cmH2O. Sleep Study - Results Type of Sleep Study: Polysomnography Prior sleep studies: Yes Year and Where: 2008 - [facility] Subjective Initial [place] Sleepiness Scale score: 6 (in 2008) Allergies and Home Medications Drug allergies reviewed: Yes Home medication list reviewed: Yes Allergy and home medication list: Allergies triamcinolone acetonide * [From [facility]] Allergy (Verified 04/21/20 14:41) Unknown Review of Systems Review of systems same as previous: Yes Physical Exam Vital signs obtained and entered by: BREANNE SHEETS Height: 5 ft 11 in Impression and Plan IMPRESSION: 1. Obstructive Sleep Apnea-Hypopnea Syndrome, moderate, with the patient continuing to do well on nasal CPAP therapy. He has excellent compliance and significant clinical benefits. The current pressure appears effective but not completely comfortable. Overall, he is very satisfied with treatment and plans to continue with it long-term. Even though his obstructive sleep apnea-hypopnea was diagnosed in 2008, most likely he has had the condition dating back to his years in the . 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 PLAN: 1. Leave the autoCPAP at 14 - 16 cmH2O. 2. Return for follow up in a year or earlier if there is any problem. Follow up with Sleep Care in: 1 year Visit Type: Telehealth Video (PHONE# [phone]) Video Type: Doximity Patient Location: Home Location of Provider: Home Patient agrees and consents to this telehealth visit type: Yes Patient agrees to have their insurance billed: Yes Time Spent with Patient (minutes): 15 Provider Statement: I spent 100% of the Telehealth Video Call with the patient with greater than 50% spent counseling the patient and coordination of care.
== END 2021-11-24 12:14 | disposition home or self-care (01) ==
LOC: SC 12:13
PROVIDERS: ATTEND Internal Medicine Pulmonary Disease
DX: G47.33 Obstructive sleep apnea (adult) (pediatric) (principal)

== ENCOUNTER 2022-02-09 14:28 | Outpatient (CLI) | payer MEDICARE, OTHER ==
[2022-02-09 21:13] VITALS: BP 120/78
--- NOTE | 2022-02-09 21:13 | SLEEP CARE CONSULTATION ---
Information from patient questionnaire entered by Stalin Nunn. I have reviewed and concur with the information entered by Stalin Nunn. This document represents the service I personally performed and the decisions made by me, Sina Grissom MD, [facility]. History of Present Illness Service Date and Time: 02/09/2022 1428 Previous diagnosis: Moderate, Obstructive Sleep Apnea-Hypopnea Syndrome AHI: 21.7 (in 2008) Reason for follow up: other (DISCUSS LETTER FROM [place], [facility]) Equipment type: ASV Equipment obtained from: [employer] Mask style: Nasal pillows Prior sleep studies: Yes Year and Where: 2008 - [facility] Sleep Type of Sleep Study: Polysomnography HPI additional information: Mr. Horne was diagnosed to have moderate obstructive sleep apnea-hypopnea syndrome (AHI was 21.7 based on an in-laboratory polysomnography performed in 2008) and returns today for follow up of CPAP therapy. 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 He said back then he did not want to know if he had obstructive sleep apnea-hypopnea because that would have prevented him from flying. Sleep Study - Results Type of Sleep Study: Polysomnography Prior sleep studies: Yes Year and Where: 2008 - [facility] Sleep Subjective Initial [place] Sleepiness Scale score: 6 (in 2008) Current [place] Sleepiness Scale score: 0 (02/09/22) Allergies and Home Medications Drug allergies reviewed: Yes Home medication list reviewed: Yes Allergy and home medication list: Allergies triamcinolone acetonide * [From [employer]] Allergy (Verified 04/21/20 14:41) Unknown Review of Systems Review of systems same as previous: Yes Physical Exam Vital signs obtained and entered by: KORTNEY, DIRECTOR OF ANCILLARY SERVICES Blood Pressure: 120/78 (LEFT ARM ) Cuff size: long Heart Rate: 80 O2 Saturation: 96 Height: 5 ft 11 in Weight: 282 lb Body Mass Index: 39.3 BMI Classification: Obese Impression and Plan IMPRESSION: 1. Obstructive Sleep Apnea-Hypopnea Syndrome, moderate, with the patient continuing to do well on nasal CPAP therapy. He has excellent compliance and significant clinical benefits. The current pressure appears effective but not completely comfortable. Overall, he is very satisfied with treatment and plans to continue with it long-term. Even though his obstructive sleep apnea-hypopnea was diagnosed in 2008, most likely he has had the condition dating back to his years in the . I will write a letter stating as such. PLAN: 1. Leave the autoCPAP at 14 - 16 cmH2O. 2. [facility]. 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 3. Return for follow up in a year or earlier if there is any problem. Follow up with Sleep Care in: 1 year Visit Type: In Office Time Spent with Patient (minutes): 20 Provider Statement: I spent 100% of the Face to Face Visit with the patient with greater than 50% spent counseling the patient and coordination of care.
== END 2022-02-09 14:29 | disposition home or self-care (01) ==
LOC: SC 14:28
PROVIDERS: ATTEND Internal Medicine Pulmonary Disease
DX: G47.33 Obstructive sleep apnea (adult) (pediatric) (principal); E66.9 Obesity, unspecified; Z68.39 Body mass index [BMI] 39.0-39.9, adult
CPT/HCPCS: 99213; G0463; 99212

== ENCOUNTER 2022-09-21 10:16 | Outpatient (CLI) | payer MEDICARE, OTHER ==
[2022-09-21 12:29] VITALS: BP 128/72
--- NOTE | 2022-09-21 12:29 | SLEEP CARE CONSULTATION ---
Information from patient questionnaire entered by Rhea Sylvester. I have reviewed and concur with the information entered by Rhea Sylvester. This document represents the service I personally performed and the decisions made by me, Sina Grissom MD, [facility]. History of Present Illness Service Date and Time: 09/21/2022 1016 Previous diagnosis: Moderate, Obstructive Sleep Apnea-Hypopnea Syndrome AHI: 21.7 (in 2008) Reason for follow up: annual (LAST SEEN 09/2021) Equipment type: CPAP (RESMED) Equipment obtained from: [employer] Mask style: Nasal pillows Prior sleep studies: Yes Year and Where: 2008 - [facility] Type of Sleep Study: Polysomnography HPI additional information: Mr. Horne was diagnosed to have moderate obstructive sleep apnea-hypopnea syndrome and returns today for follow up of CPAP therapy. The patient gets his supplies from [employer]. He wears the ResMed P30i nasal pillows. He continues to use the device nightly and all through the night. The compliance report shows that he uses the device 180 nights out of the past 180 nights, averaging 9.3 hours a night. He complains of air leaking out his mouth causing some disturbance to his but no particular problem with the device such as soreness on the face, dry nose, epistaxis, nasal congestion or headache. He thinks that the pressure of 14 - 16 cmH2O is comfortable. On the CPAP therapy he notices improvement in his sleep quality, and that he wakes up feeling fresher in the morning and more awake/alert during the day. His notices no snore at all. [place] Sleepiness Scale score is 4. The average residual AHI is 1.6; and average air leak is 0 L/minute. The 90th percentile pressure is 14.7 cmH2O. Sleep Study - Results Type of Sleep Study: Polysomnography Prior sleep studies: Yes Year and Where: 2008 - [facility] Sleep Subjective Initial Valentines Sleepiness Scale score: 6 (in 2008) Current Valentines Sleepiness Scale score: 4 (09/21/22) Allergies and Home Medications Drug allergies reviewed: Yes Home medication list reviewed: Yes Allergy and home medication list: Allergies triamcinolone acetonide * [From Azmacort] Allergy (Verified 04/21/20 14:41) Unknown Review of Systems Review of systems same as previous: Yes Physical Exam Vital signs obtained and entered by: RHEA Garcia MA Blood Pressure: 128/72 (LEFT ARM) Cuff size: regular Heart Rate: 78 O2 Saturation: 98 Height: 5 ft 11 in Weight: 273 lb 6.4 oz Body Mass Index: 38.1 BMI Classification: Obese Impression and Plan IMPRESSION: 1. Obstructive Sleep Apnea-Hypopnea Syndrome, moderate, with the patient continuing to do well on nasal CPAP therapy. He has excellent compliance and significant clinical benefits. The current pressure appears effective and comfortable. Overall, he is very satisfied with treatment and plans to continue with it long-term. No adjustment is necessary today. PLAN: 1. Continue with autoCPAP set at 14 - 16 cm H2O. 2. Try a chinstrap. 3. Lower the heated humidifier setting to conserve water if he is not dry. 4. Try to lose weight. 5. Return for follow up in a year or earlier if there is any problem. Follow up with Sleep Care in: 1 year Follow up recommended for: Weight management Visit Type: In Office Time Spent with Patient (minutes): 15 Provider Statement: I spent 100% of the Face to Face Visit with the patient with greater than 50% spent counseling the patient and coordination of care.
== END 2022-09-21 10:17 | disposition home or self-care (01) ==
LOC: SC 10:16
PROVIDERS: ATTEND Internal Medicine Pulmonary Disease
DX: G47.33 Obstructive sleep apnea (adult) (pediatric) (principal); E66.9 Obesity, unspecified; Z68.38 Body mass index [BMI] 38.0-38.9, adult
CPT/HCPCS: 99212; G0463

== ENCOUNTER 2023-10-18 14:14 | Outpatient (CLI) | payer MEDICARE, OTHER ==
--- NOTE | 2023-10-18 14:54 | SLEEP CARE CONSULTATION ---
Information from patient questionnaire entered by Rhea Sylvester. I have reviewed and concur with the information entered by Rhea Sylvester. This document represents the service I personally performed and the decisions made by me, Sina Grissom MD, [facility]. History of Present Illness Service Date and Time: 10/18/2023 1414 Previous diagnosis: Moderate, Obstructive Sleep Apnea-Hypopnea Syndrome AHI: 21.7 (in 2008) Reason for follow up: annual (LAST SEEN 09/2022) Equipment type: CPAP (RESMED) Equipment obtained from: [employer] Mask style: Nasal pillows Prior sleep studies: Yes Year and Where: 2008 - [facility] Type of Sleep Study: Polysomnography HPI additional information: Mr. Horne was diagnosed to have moderate obstructive sleep apnea-hypopnea syndrome and returns today for follow up of CPAP therapy. The patient gets his supplies from [email or web address]. He wears the ResMed P30i nasal pillows. He continues to use the ResMed AirSense 11 nightly and all through the night. The compliance report shows that he uses the device 365 nights out of the past 365 nights, averaging 8.9 hours a night. He complains of air leaking out his mouth causing some disturbance to his but no particular problem with the device such as soreness on the face, dry nose, epistaxis, nasal congestion or headache. He thinks that the pressure of 14 - 16 cmH2O is comfortable. On the CPAP therapy he notices improvement in his sleep quality, and that he wakes up feeling fresher in the morning and more awake/alert during the day. His notices no snore at all. [place] Sleepiness Scale score is 6. The average residual AHI is 1.5; and average air leak is 0.2 L/minute. The 90th percentile pressure is 14.7 cmH2O. Sleep Study - Results Type of Sleep Study: Polysomnography Prior sleep studies: Yes Year and Where: 2008 - [facility] CPAP Compliance Data - Data Reviewed with Patient Average duration of nightly device use: 8HRS 52MINS Compliance rate %: 100 (10/14/22-10/13/23) Current pressure setting (cmH2O): 14-16 Average residual AHI: 1.5 Subjective Initial [place] Sleepiness Scale score: 6 (in 2008) Current [place] Sleepiness Scale score: 6 (10/18/23) Allergies and Home Medications Home medication list reviewed: Yes Allergy and home medication list: Allergies triamcinolone acetonide * [From Azmacort] Allergy (Verified 10/14/23 17:15) Unknown sulfamethoxazole [From Bactrim] Adverse Reaction (Verified 10/14/23 17:15) trimethoprim [From Bactrim] Adverse Reaction (Verified 10/14/23 17:15) Review of Systems Review of systems same as previous: Yes (NO CHANGE) Physical Exam Vital signs obtained and entered by: RHEA Garcia MA Blood Pressure: 141/78 (RIGHT ARM) Cuff size: regular Heart Rate: 76 O2 Saturation: 95 Height: 5 ft 11 in Weight: 277 lb 12.8 oz Body Mass Index: 38.7 BMI Classification: Obese Impression and Plan IMPRESSION: 1. Obstructive Sleep Apnea-Hypopnea Syndrome, moderate, with the patient continuing to do well on nasal CPAP therapy. He has excellent compliance and significant clinical benefits. The current pressure appears effective and comfortable. Overall, he is very satisfied with treatment and plans to continue with it long-term. No adjustment is necessary today. PLAN: 1. Continue with autoCPAP set at 14 - 16 cm H2O. 2. Lower the heated humidifier setting to conserve water if he is not dry. 3. Try to lose weight. 4. Return for follow up in a year or earlier if there is any problem. Continue with device pressure at (cmH2O): 14 - 16 Counseling Topics: Weight control Follow up with Sleep Care in: 1 year Follow up recommended for: Weight management Visit Type: In Office Time Spent with Patient (minutes): 15 Provider Statement: I spent 100% of the Face to Face Visit with the patient with greater than 50% spent counseling the patient and coordination of care.
[2023-10-18 14:55] VITALS: BP 141/78; O2SAT 95
== END 2023-10-18 14:15 | disposition home or self-care (01) ==
LOC: SC 14:14
PROVIDERS: ATTEND Internal Medicine Pulmonary Disease
DX: G47.33 Obstructive sleep apnea (adult) (pediatric) (principal)
CPT/HCPCS: 99212; G0463